=== PATIENT | male | born 1970 | race Caucasian/White ===

== ENCOUNTER → 2019-02-18 | Outpatient (CLI) | payer BC ==
[2019-02-18 11:15] LABS: BLOOD UREA NITROGEN 9 MG/DL (7-18); CREATININE FOR GFR 0.66 MG/DL (0.70-1.30); GLOMERULAR FILTRATION RATE > 60.0 (>60)
== END ==
LOC: M LAB 10:21
PROVIDERS: ATTEND Orthopaedic Surgery Hand Surgery
DX: Z01.812 Encounter for preprocedural laboratory examination (principal); R22.31 Localized swelling, mass and lump, right upper limb

== ENCOUNTER → 2019-04-26 | Outpatient (REF) | payer BC | LOC: M LAB REF 17:18 | PROVIDERS: ATTEND Orthopaedic Surgery Hand Surgery | DX: L72.0 Epidermal cyst (principal) ==

== ENCOUNTER → 2020-06-09 | Outpatient (CLI) | payer BC | LOC: M LABSMTC 09:41 | PROVIDERS: ATTEND Pediatrics | DX: Z01.812 Encounter for preprocedural laboratory examination (principal); Z20.828 Contact with and (suspected) exposure to other viral communicable diseases ==

== ENCOUNTER → 2021-12-19 | Outpatient (CLI) | payer BC ==
[2021-12-19 11:41] LABS: BASO # 0.1 10^3/uL (0.0-0.2); BASO % 0.8 % (0.0-1.0); EOS # 0.2 10^3/uL (0.0-0.5); EOS % 2.4 % (0.0-3.0); HEMATOCRIT 41.9 % (42.0-52.0); HEMOGLOBIN 14.3 g/dl (13.5-17.5); LYMPH # 2.1 10^3/uL (1.5-5.0); LYMPH % 27.3 % (24.0-44.0); MEAN CORPUSCULAR HEMOGLOBIN 32.9 pg (27.0-33.0); MEAN CORPUSCULAR HGB CONC 34.1 g/dl (32.0-36.5); MEAN CORPUSCULAR VOLUME 96.5 fl (80.0-96.0); MONO # 0.9 10^3/uL (0.0-0.8); NEUTROPHILS # 4.3 10^3/uL (1.5-8.5); NEUTROPHILS % 57.2 % (36.0-66.0); PLATELET COUNT, AUTOMATED 310 10^3/uL (150-450); RED BLOOD COUNT 4.34 10^6/uL (4.30-6.10); WHITE BLOOD COUNT 7.5 10^3/uL (4.0-10.0)
[2021-12-19 12:16] LABS: ALBUMIN 3.4 GM/DL (3.2-5.2); ALT/SGPT 31 U/L (12-78); BILIRUBIN,TOTAL 0.4 MG/DL (0.2-1.0); BLOOD UREA NITROGEN 12 MG/DL (7-18); CALCIUM LEVEL 8.4 MG/DL (8.5-10.1); CARBON DIOXIDE LEVEL 26 MEQ/L (21-32); CHLORIDE LEVEL 105 MEQ/L (98-107); CHOLESTEROL LEVEL 96 MG/DL (<200); CHOLESTEROL RISK RATIO 1.846 (<5); CREATININE FOR GFR 0.76 MG/DL (0.70-1.30); GLOMERULAR FILTRATION RATE > 60.0 (>56); GLUCOSE, FASTING 89 MG/DL (70-100); HDL CHOLESTEROL 52 MG/DL (>40); LDL CHOLESTEROL 37 MG/DL (<100); NON-HDL-C 44 MG/DL; POTASSIUM SERUM 4.4 MEQ/L (3.5-5.1); SODIUM LEVEL 136 MEQ/L (136-145); TOTAL PROTEIN 6.9 GM/DL (6.4-8.2); TRIGLYCERIDES LEVEL 37 MG/DL (<150)
[2021-12-19 12:18] LABS: HEMOGLOBIN A1c 5.1 %
[2021-12-19 12:22] LABS: CREATININE, URINE 77.4 MG/DL; MALB URINE SIEMENS < 5.0 MG/L; MAU/CREAT RATIO 6.4 MCG/MG (0.0-30.0)
== END ==
LOC: M PLALAB 08:11
PROVIDERS: ATTEND Physician Assistant
DX: I10 Essential (primary) hypertension (principal)

== ENCOUNTER → 2021-12-26 | Outpatient (CLI) | payer BC | LOC: M PLALAB 08:33 | PROVIDERS: ATTEND Physician Assistant | DX: M25.531 Pain in right wrist (principal) ==

== ENCOUNTER → 2022-05-03 | Outpatient (CLI) | payer BC ==
[~2022-05-03] MED LIST: AMLO1TAB24 PO; ATOR80TA59 PO; BAYE81TA10 PO; BENA-8 PO; EZET10TA21 PO; MULTTAB12 PO; PRIL20TA2 PO
== END ==
LOC: M LABSMTC 11:22
PROVIDERS: ATTEND Anesthesiology
DX: Z20.828 Contact with and (suspected) exposure to other viral communicable diseases (principal); Z11.59 Encounter for screening for other viral diseases

== ENCOUNTER 2022-05-06 08:52 | Day surgery (SDC) | payer BC ==
[~2022-05-06] VITALS: Ht 182.9 cm; Wt 78.8 kg
[~2022-05-06 08:52] MED LIST changes: +LIDOCAINE 2% 100MG/5ML SDV (FOR ANES.) As Ordered ONE; +NS 1,000 ML IV ONE; +propofoL 200 MG/20 ML VIAL As Ordered ONE
[2022-05-06 11:45] VITALS: BP 135/91
== END 2022-05-06 11:45 | disposition home or self-care (01) ==
LOC: M OPP 08:52
PROVIDERS: ATTEND Surgery
DX: Z12.11 Encounter for screening for malignant neoplasm of colon (principal); D12.3 Benign neoplasm of transverse colon; K64.1 Second degree hemorrhoids; K22.89 Other specified disease of esophagus; K29.70 Gastritis, unspecified, without bleeding; K22.70 Barrett's esophagus without dysplasia; F17.200 Nicotine dependence, unspecified, uncomplicated; Z79.82 Long term (current) use of aspirin; Z79.02 Long term (current) use of antithrombotics/antiplatelets; Z79.899 Other long term (current) drug therapy; Z95.1 Presence of aortocoronary bypass graft

== ENCOUNTER → 2022-07-10 | Outpatient (CLI) | payer BC ==
[~2022-07-10] MED LIST changes: -LIDOCAINE 2% 100MG/5ML SDV (FOR ANES.) As Ordered ONE; -NS 1,000 ML IV ONE; -propofoL 200 MG/20 ML VIAL As Ordered ONE
== END ==
LOC: M ADAMS 09:25
PROVIDERS: ATTEND Physician Assistant
DX: R91.8 Other nonspecific abnormal finding of lung field (principal); F17.210 Nicotine dependence, cigarettes, uncomplicated; Z86.16 Personal history of COVID-19; Z95.5 Presence of coronary angioplasty implant and graft

== ENCOUNTER → 2022-07-17 | Outpatient (CLI) | payer BC ==
[~2022-07-17] MED LIST changes: +ISOVUE-370 76% 100ML VIAL As Ordered ONE
== END ==
LOC: M RAD 08:01
PROVIDERS: ATTEND Physician Assistant
DX: R06.02 Shortness of breath (principal); F17.210 Nicotine dependence, cigarettes, uncomplicated; R93.89 Abnormal findings on diagnostic imaging of other specified body structures

== ENCOUNTER → 2022-08-17 | Outpatient (CLI) | payer BC ==
[~2022-08-17] MED LIST changes: -ISOVUE-370 76% 100ML VIAL As Ordered ONE
== END ==
LOC: M CARPUL 12:31
PROVIDERS: ATTEND Physician Assistant
DX: R06.02 Shortness of breath (principal); F17.210 Nicotine dependence, cigarettes, uncomplicated; Z86.16 Personal history of COVID-19

== ENCOUNTER → 2022-09-03 | Outpatient (CLI) | payer BC | LOC: M RAD 10:25 | PROVIDERS: ATTEND Physician Assistant | DX: F17.210 Nicotine dependence, cigarettes, uncomplicated (principal) ==

== ENCOUNTER → 2022-09-07 | Outpatient (CLI) | payer BC | LOC: M PLARAD 13:18 | PROVIDERS: ATTEND Internal Medicine Pulmonary Disease | DX: R91.8 Other nonspecific abnormal finding of lung field (principal) ==

== ENCOUNTER → 2023-09-20 | Outpatient (CLI) | payer BC | LOC: M RAD 09:34 | PROVIDERS: ATTEND Internal Medicine Pulmonary Disease | DX: Z12.2 Encounter for screening for malignant neoplasm of respiratory organs (principal); F17.218 Nicotine dependence, cigarettes, with other nicotine-induced disorders ==

== ENCOUNTER → 2024-02-26 | Outpatient (REF) | payer BC | LOC: M LAB REF 14:25 | PROVIDERS: ATTEND Physician Assistant | DX: R19.7 Diarrhea, unspecified (principal) ==

== ENCOUNTER → 2024-03-03 | Outpatient (CLI) | payer BC ==
[~2024-03-03] MED LIST changes: +GASTROGRAFIN SOLUTION 30ML ONE; +ISOVUE-370 76% 100ML VIAL ONE
== END ==
LOC: M PLAIMG 11:07
PROVIDERS: ATTEND Physician Assistant
DX: R19.7 Diarrhea, unspecified (principal); K76.0 Fatty (change of) liver, not elsewhere classified
CPT/HCPCS: 74178; Q9963; Q9967

== ENCOUNTER → 2024-03-11 | Outpatient (REF) | payer BC ==
[~2024-03-11] MED LIST changes: -GASTROGRAFIN SOLUTION 30ML ONE; -ISOVUE-370 76% 100ML VIAL ONE
== END ==
LOC: M LAB REF 08:25
PROVIDERS: ATTEND Physician Assistant
DX: R19.7 Diarrhea, unspecified (principal)

== ENCOUNTER → 2024-03-11 | Outpatient (CLI) | payer BC ==
[2024-03-11 09:19] LABS: BASO # 0.1 10^3/uL (0.0-0.2); BASO % 0.8 % (0.0-1.0); EOS # 0.3 10^3/uL (0.0-0.5); EOS % 4.4 % (0.0-3.0); HEMATOCRIT 38.7 % (42.0-52.0); LYMPH # 1.7 10^3/uL (1.5-5.0); LYMPH % 25.2 % (24.0-44.0); MEAN CORPUSCULAR HEMOGLOBIN 31.6 pg (27.0-33.0); MEAN CORPUSCULAR HGB CONC 33.6 g/dl (32.0-36.5); MEAN CORPUSCULAR VOLUME 93.9 fl (80.0-96.0); MONO # 0.8 10^3/uL (0.0-0.8); MONO % 12.3 % (2.0-8.0); NEUTROPHILS # 3.8 10^3/uL (1.5-8.5); NEUTROPHILS % 57.1 % (36.0-66.0); PLATELET COUNT, AUTOMATED 242 10^3/uL (150-450); RED BLOOD COUNT 4.12 10^6/uL (4.30-6.10); WHITE BLOOD COUNT 6.6 10^3/uL (4.0-10.0)
[2024-03-11 09:41] LABS: HEMOGLOBIN A1c 5.2 % (4.0-6.0)
[2024-03-11 09:46] LABS: ALBUMIN 3.6 G/DL (3.2-5.2); ALKALINE PHOSPHATASE 57 U/L (46-116); ALT/SGPT 35 U/L (7.0-40); AST/SGOT 26 U/L (<34); BILIRUBIN,TOTAL 0.4 MG/DL (0.3-1.2); BLOOD UREA NITROGEN 12 MG/DL (9-23); CALCIUM LEVEL 8.5 MG/DL (8.5-10.1); CARBON DIOXIDE LEVEL 28 MMOL/L (20-31); CHLORIDE LEVEL 107 MMOL/L (98-107); CHOLESTEROL LEVEL 106 MG/DL (<200); CREATININE FOR GFR 0.82 MG/DL (0.70-1.30); GLOMERULAR FILTRATION RATE > 60.0 (>56); GLUCOSE, FASTING 93 MG/DL (60-100); LDL CHOLESTEROL 48.2 MG/DL (<100); POTASSIUM SERUM 4.8 MMOL/L (3.5-5.1); PSA SCREENING 0.39 NG/ML (< 4.00); SODIUM LEVEL 139 MMOL/L (136-145); TOTAL PROTEIN 6.5 G/DL (5.7-8.2); TRIGLYCERIDES LEVEL 49 MG/DL (<150)
== END ==
LOC: M LAB 08:26
PROVIDERS: ATTEND Physician Assistant
DX: R19.7 Diarrhea, unspecified (principal); I10 Essential (primary) hypertension; E78.5 Hyperlipidemia, unspecified; K21.00 Gastro-esophageal reflux disease with esophagitis, without bleeding; I25.10 Atherosclerotic heart disease of native coronary artery without angina pectoris; F17.211 Nicotine dependence, cigarettes, in remission; R10.10 Upper abdominal pain, unspecified; Z12.5 Encounter for screening for malignant neoplasm of prostate
CPT/HCPCS: 36415; 80053; 80061; 83036; 85025; G0103

== ENCOUNTER → 2024-05-12 | Outpatient (REF) | payer BC ==
[2024-05-12 14:35] LABS: BASO # 0.1 10^3/uL (0.0-0.2); BASO % 1.4 % (0.0-1.0); EOS # 0.3 10^3/uL (0.0-0.5); EOS % 5.9 % (0.0-3.0); HEMATOCRIT 39.9 % (42.0-52.0); HEMOGLOBIN 13.3 g/dl (13.5-17.5); LYMPH % 34.5 % (24.0-44.0); MEAN CORPUSCULAR HEMOGLOBIN 31.7 pg (27.0-33.0); MEAN CORPUSCULAR HGB CONC 33.3 g/dl (32.0-36.5); MEAN CORPUSCULAR VOLUME 95.2 fl (80.0-96.0); MONO # 0.7 10^3/uL (0.0-0.8); MONO % 12.4 % (2.0-8.0); NEUTROPHILS # 2.6 10^3/uL (1.5-8.5); NEUTROPHILS % 45.5 % (36.0-66.0); PLATELET COUNT, AUTOMATED 263 10^3/uL (150-450); RED BLOOD COUNT 4.19 10^6/uL (4.30-6.10); WHITE BLOOD COUNT 5.7 10^3/uL (4.0-10.0)
[2024-05-12 15:02] LABS: BLOOD UREA NITROGEN 15 MG/DL (9-23); CARBON DIOXIDE LEVEL 29 MMOL/L (20-31); CHLORIDE LEVEL 107 MMOL/L (98-107); CREATININE FOR GFR 0.79 MG/DL (0.70-1.30); GLOMERULAR FILTRATION RATE > 60.0 (>56); GLUCOSE, FASTING 91 MG/DL (60-100); POTASSIUM SERUM 4.4 MMOL/L (3.5-5.1); SODIUM LEVEL 141 MMOL/L (136-145)
== END ==
LOC: M SFHCADAM 08:39
PROVIDERS: ATTEND Physician Assistant
DX: K21.00 Gastro-esophageal reflux disease with esophagitis, without bleeding (principal)

== ENCOUNTER → 2024-06-30 | Outpatient (REF) | payer BC ==
[2024-06-30 14:43] LABS: BASO # 0.1 10^3/uL (0.0-0.2); BASO % 1.2 % (0.0-1.0); EOS # 0.3 10^3/uL (0.0-0.5); EOS % 5.4 % (0.0-3.0); LYMPH # 2.3 10^3/uL (1.5-5.0); LYMPH % 39.7 % (24.0-44.0); MEAN CORPUSCULAR HEMOGLOBIN 31.6 pg (27.0-33.0); MEAN CORPUSCULAR HGB CONC 33.3 g/dl (32.0-36.5); MEAN CORPUSCULAR VOLUME 94.9 fl (80.0-96.0); MONO # 0.8 10^3/uL (0.0-0.8); NEUTROPHILS # 2.3 10^3/uL (1.5-8.5); NEUTROPHILS % 39.5 % (36.0-66.0); PLATELET COUNT, AUTOMATED 247 10^3/uL (150-450); RED BLOOD COUNT 4.11 10^6/uL (4.30-6.10); WHITE BLOOD COUNT 5.8 10^3/uL (4.0-10.0)
[2024-06-30 15:09] LABS: LIPASE 32 U/L (12-53)
[2024-06-30 15:10] LABS: AMYLASE 79 U/L (30-118)
[2024-06-30 15:11] LABS: ALBUMIN 3.6 G/DL (3.2-5.2); ALKALINE PHOSPHATASE 65 U/L (40-129); ALT/SGPT 36 U/L (7.0-40); AST/SGOT 25 U/L (<34); BILIRUBIN,TOTAL 0.4 MG/DL (0.3-1.2); BLOOD UREA NITROGEN 13 MG/DL (9-23); CALCIUM LEVEL 9.1 MG/DL (8.5-10.1); CARBON DIOXIDE LEVEL 29 MMOL/L (20-31); CHLORIDE LEVEL 105 MMOL/L (98-107); CREATININE FOR GFR 0.76 MG/DL (0.70-1.30); GLOMERULAR FILTRATION RATE > 60.0 (>56); GLUCOSE, FASTING 88 MG/DL (60-100); IRON (FE) 57 UG/DL (65-175); PERCENT SATURATION 19.8 % (19.7-50.0); SODIUM LEVEL 140 MMOL/L (136-145); TOTAL IRON BINDING CAPACITY 288 UG/DL (250-425); TOTAL PROTEIN 6.7 G/DL (5.7-8.2)
[2024-06-30 15:12] LABS: FERRITIN 109.6 NG/ML (10.5-307.3); FOLATE > 24.0 NG/ML (>5.4); VITAMIN B12 LEVEL 697 PG/ML (211-911)
== END ==
LOC: M SFHCADAM 08:51
PROVIDERS: ATTEND Physician Assistant
DX: R10.10 Upper abdominal pain, unspecified (principal); R19.5 Other fecal abnormalities; K21.00 Gastro-esophageal reflux disease with esophagitis, without bleeding

== ENCOUNTER → 2024-08-25 | Outpatient (CLI) | payer BC ==
[~2024-08-25] MED LIST changes: +ISOVUE-370 76% 100ML VIAL As Ordered ONE
== END ==
LOC: M RAD 10:10
PROVIDERS: ATTEND Internal Medicine Cardiovascular Disease
DX: R10.10 Upper abdominal pain, unspecified (principal)
CPT/HCPCS: 74175; Q9967

== ENCOUNTER → 2024-10-07 | Outpatient (CLI) | payer BC ==
[~2024-10-07] MED LIST changes: -ISOVUE-370 76% 100ML VIAL As Ordered ONE
== END ==
LOC: M LAB 11:50
PROVIDERS: ATTEND Internal Medicine Gastroenterology
DX: A08.8 Other specified intestinal infections (principal)

== ENCOUNTER → 2024-10-16 | Outpatient (CLI) | payer BC | LOC: M RAD 07:36 | PROVIDERS: ATTEND Internal Medicine Pulmonary Disease | DX: Z12.2 Encounter for screening for malignant neoplasm of respiratory organs (principal); Z87.891 Personal history of nicotine dependence ==

== ENCOUNTER → 2024-10-16 | Outpatient (CLI) | payer BC | LOC: M LAB 07:38 | PROVIDERS: ATTEND Internal Medicine Gastroenterology | DX: R19.7 Diarrhea, unspecified (principal); A08.8 Other specified intestinal infections ==

== ENCOUNTER → 2024-10-23 | Outpatient (CLI) | payer BC | LOC: M RAD 08:12 | PROVIDERS: ATTEND Internal Medicine Gastroenterology | DX: R10.84 Generalized abdominal pain (principal) ==